=== PATIENT | male | born 1980 | race Caucasian/White ===

== ENCOUNTER 2022-04-12 10:34 | Outpatient (RCR) | payer SELFPAY | END 2022-05-01 | disposition home or self-care (01) | LOC: ONC 10:34 | PROVIDERS: ATTEND Internal Medicine Hematology & Oncology | DX: C91.11 Chronic lymphocytic leukemia of B-cell type in remission (principal) | CPT/HCPCS: 88184; 88185; G0463; 36415; 99204 ==